=== PATIENT | female | born 1955 | race Caucasian/White ===

== ENCOUNTER 2024-01-28 17:19 | Emergency (ER) | payer MEDICARE ==
[~2024-01-28] VITALS: Ht 165.1 cm; Wt 75.0 kg
[2024-01-28] MEDS ORDERED: IBUP-1554 PO (20:50)
[2024-01-28] MEDS ORDERED: ACET-2080 PO (20:50)
[2024-01-28 21:32] VITALS: BP 132/74; PULSE 74; RESP 18; TEMP 97.3
[2024-01-28] MEDS: IBUPROFEN 600 MG TABLET PO ONE (21:32)
[2024-01-28] MEDS: ACETAMINOPHEN/CODEINE 300-30 MG TABLET PO ONE (21:32)
== END 2024-01-28 21:46 | disposition home or self-care (01) ==
LOC: EMS 17:23
DX: S60.012A Contusion of left thumb without damage to nail, initial encounter (principal); E78.00 Pure hypercholesterolemia, unspecified; I10 Essential (primary) hypertension; X58.XXXA Exposure to other specified factors, initial encounter; Y93.89 Activity, other specified; Y92.89 Other specified places as the place of occurrence of the external cause; Y99.8 Other external cause status
CPT/HCPCS: 29280; 99283